=== PATIENT | female | born 2000 | race Caucasian/White ===

== ENCOUNTER 2019-11-03 20:14 | Emergency (ER) | payer OTHER ==
[~2019-11-03] VITALS: Ht 165.1 cm; Wt 76.7 kg
[2019-11-03] MEDS ORDERED: ENBRACE HR SOF1 EACH PO (20:37)
[2019-11-03 21:40] VITALS: BP 127/80
[2019-11-04] MEDS ORDERED: LORCET 5-325 M1 EACH PO (03:44)
== END 2019-11-03 21:40 | disposition left against medical advice (07) ==
LOC: M.ERS 20:14
DX: Z53.21 Procedure and treatment not carried out due to patient leaving prior to being seen by health care provider (principal)

== ENCOUNTER 2019-11-04 02:11 | Emergency (ER) | payer OTHER, MEDICAID ==
[~2019-11-04] VITALS: Ht 165.1 cm; Wt 76.7 kg
[~2019-11-04 02:11] MED LIST: ENBRACE HR SOF1 EACH PO
[2019-11-04 02:59] LABS: URINE BLOOD 1+ (Negative); URINE CLARITY CLEAR; URINE COLOR YELLOW; URINE GLUCOSE-RANDOM NEGATIVE (Negative); URINE KETONES 2+ (Negative); URINE LEUKOCYTES-REFLEX 1+ (Negative); URINE NITRITE-REFLEX NEGATIVE (Negative); URINE PROTEIN NEGATIVE (Negative); URINE SPECIFIC GRAVITY >= 1.030 (1.005-1.030); URINE UROBILINOGEN 0.2 E.U./dl (0.2-1.0)
[2019-11-04 03:01] LABS: URINE BILIRUBIN 1+ (Negative)
[2019-11-04 03:03] LABS: ICTOTEST (BILI CONFIRMATORY) Negative (Negative)
[2019-11-04 03:06] LABS: AMP/METHAMP Negative (Negative); BARBITURATES Negative (Negative); BENZODIAZEPINES Negative (Negative); COCAINE Negative (Negative); METHADONE Negative (Negative); OPIATES Negative (Negative); PCP Negative (Negative); THC POSITIVE (Negative)
[2019-11-04 03:16] LABS: ABSOLUTE BASOPHILS 0.1 thou/uL (0.0-0.2); ABSOLUTE EOSINOPHILS 0.1 thou/uL (0.0-0.7); ABSOLUTE LYMPHOCYTES 3.2 thou/uL (0.8-5.3); ABSOLUTE MONOCYTES 0.5 thou/uL (0.0-1.2); ABSOLUTE NEUTROPHILS 5.7 thou/uL (1.6-8.1); BASOPHILS 0.6 %; HEMATOCRIT 35.6 % (37.0-47.0); HEMOGLOBIN 12.2 gm/dL (12.0-15.0); LYMPHOCYTES 33.2 %; MCH 29.7 pg (26.0-34.0); MCHC 34.4 g/dL (28.0-37.0); MCV 86.3 fL (80.0-100.0); MONOCYTES 5.7 %; MPV 8.2 fl. (7.2-11.1); NUCLEATED RBCS 0 /100WBC; PLATELET COUNT* 252 thou/uL (150-400); POLYS 59.5 %; RBC 4.12 mil/uL (4.20-5.00); WBC 9.5 thou/uL (4.0-11.0)
[2019-11-04 03:17] LABS: CASTS None Seen /LPF (None Seen); SQUAMOUS >10 Many /LPF (0-3)
[2019-11-04 03:18] LABS: URINE RBC 0-2 Rare /HPF (0-2); URINE WBC-REFLEX 6-15 Few /HPF (0-5)
[2019-11-04 03:19] LABS: CRYSTALS None Seen /LPF (None Seen)
[2019-11-04 03:24] LABS: CREATININE 0.6 mg/dL (0.6-1.3); POTASSIUM 3.6 mmol/L (3.5-5.1)
[2019-11-04 03:28] LABS: TOTAL BILIRUBIN 0.3 mg/dL (<0.1-1.0); TOTAL PROTEIN 7.2 g/dL (6.4-8.2); URIC ACID* 4.5 mg/dL (2.6-7.2)
[2019-11-04] MEDS ORDERED: LORCET 5-325 M1 EACH PO (03:44)
[2019-11-04 03:50] VITALS: BP 115/65
== END 2019-11-04 04:11 | disposition home or self-care (01) ==
LOC: M.ERS 02:11
PROVIDERS: Emergency Medicine
DX: O26.892 Other specified pregnancy related conditions, second trimester (principal); M79.642 Pain in left hand; M79.641 Pain in right hand; Z3A.16 16 weeks gestation of pregnancy; Z79.899 Other long term (current) drug therapy

== ENCOUNTER 2020-07-09 10:25 | Emergency (ER) | payer OTHER, MEDICAID ==
[~2020-07-09] VITALS: Ht 162.6 cm; Wt 73.5 kg
[~2020-07-09 10:25] MED LIST changes: +LORCET 5-325 M1 EACH PO
[2020-07-09 11:04] LABS: HEMATOCRIT 35.3 % (37.0-47.0); HEMOGLOBIN 11.5 gm/dL (12.0-15.0); MCH 25.9 pg (26.0-34.0); MCHC 32.6 g/dL (28.0-37.0); MCV 79.5 fL (80.0-100.0); MPV 7.8 fl. (7.2-11.1); NUCLEATED RBCS 0 /100WBC; PLATELET COUNT* 585 thou/uL (150-400); RBC 4.44 mil/uL (4.20-5.00); RDW-CV 16.6 % (10.5-14.5); WBC 14.7 thou/uL (4.0-11.0)
[2020-07-09 11:20] LABS: CALCIUM 9.3 mg/dL (8.5-10.1); CREATININE 0.9 mg/dL (0.6-1.3); POTASSIUM 3.3 mmol/L (3.5-5.1)
[2020-07-09 11:24] LABS: ALBUMIN 2.8 g/dL (3.4-5.0); TOTAL BILIRUBIN 0.5 mg/dL (<0.1-1.0); TOTAL PROTEIN 9.1 g/dL (6.4-8.2)
[2020-07-09 11:52] LABS: ABSOLUTE EOSINOPHILS 0.1 thou/uL (0.0-0.7); ABSOLUTE LYMPHOCYTES 2.1 thou/uL (0.8-5.3); ABSOLUTE NEUTROPHILS 12.5 thou/uL (1.6-8.1)
[2020-07-09 11:53] LABS: PLATELET ESTIMATE INCREASED
[2020-07-09 11:54] LABS: HYPOCHROMASIA 2+
[2020-07-09 12:39] LABS: ICTOTEST (BILI CONFIRMATORY) Negative (Negative); URINE BILIRUBIN 2+ (Negative); URINE BLOOD 2+ (Negative); URINE CLARITY CLEAR; URINE COLOR YELLOW; URINE GLUCOSE-RANDOM NEGATIVE (Negative); URINE KETONES 2+ (Negative); URINE LEUKOCYTES-REFLEX NEGATIVE (Negative); URINE NITRITE-REFLEX NEGATIVE (Negative); URINE PROTEIN 2+ (Negative); URINE SPECIFIC GRAVITY 1.025 (1.005-1.030)
[2020-07-09 12:46] LABS: AMP/METHAMP Negative (Negative); BARBITURATES Negative (Negative); BENZODIAZEPINES Negative (Negative); COCAINE Negative (Negative); METHADONE Negative (Negative); OPIATES Negative (Negative); PCP Negative (Negative); THC POSITIVE (Negative)
[2020-07-09 12:53] LABS: CASTS None Seen /LPF (None Seen); CRYSTALS None Seen /LPF (None Seen); MUCUS 0-3 Light strn/LPF (None Seen); SQUAMOUS 0-3 Few /LPF (0-3); URINE RBC 3-10 Few /HPF (0-2); URINE WBC-REFLEX 0-5 Rare /HPF (0-5)
[2020-07-09] MEDS ORDERED: ZOFRAN ODT4 MG PO (13:52)
[2020-07-09] MEDS ORDERED: VENTOLIN HFA 1818 GM INH (13:52)
[2020-07-09] MEDS ORDERED: ZPAK PO (13:52)
[2020-07-09] MEDS ORDERED: DECADRON6 MG PO (13:52)
[2020-07-09 14:29] VITALS: BP 115/76
--- NOTE | 2020-07-10 10:05 | EKG ---
[place] [address] ELECTROCARDIOGRAM REPORT Name: AUTUMN RODRIGUEZ Room: [facility]#: [id number] Admission: 07/09/20 Attend Phys: Discharge: 07/09/20 Date of : 89 Date of Service: 07/09/20 1121 Report #: [id number] THIS REPORT FOR: //name// [facility] ED Test Date: 2020-07-09 Test Time: 11:21:14 Pat Name: AUTUMN RODRIGUEZ Department: Room: Gender: F [employer]: CCD : 2000 Requested By: Jil Maurer Order Number: [id number] MD: Al Mccrary Measurements Intervals [place] Rate: 119 P: 60 [place]: 143 QRS: 88 QRSD: 76 T: 0 QT: 294 QTc: 414 Interpretive Statements Sinus tachycardia Borderline T abnormalities, inferior leads No previous ECG available for comparison Electronically Signed On 07-10-2020 10:05:30 CDT by Al Mccrary [email or web address] <ELECTRONICALLY SIGNED> By: Al Mccrary MD, [facility] 07/10/20 1005 20 20 Al Mccrary MD, FAC /EPI
== END 2020-07-09 14:30 | disposition home or self-care (01) ==
LOC: M.ERS 10:25
PROVIDERS: Nurse Practitioner Family
DX: E86.0 Dehydration (principal); R11.2 Nausea with vomiting, unspecified; R50.9 Fever, unspecified; R51.9 Headache, unspecified; R05 Cough; M54.9 Dorsalgia, unspecified; R53.83 Other fatigue; Z20.822 Contact with and (suspected) exposure to COVID-19; F17.210 Nicotine dependence, cigarettes, uncomplicated; Z86.73 Personal history of transient ischemic attack (TIA), and cerebral infarction without residual deficits; Z79.899 Other long term (current) drug therapy